=== PATIENT | female | born 1935 | race Caucasian/White ===

== ENCOUNTER 2017-09-05 09:58 | Outpatient (CLI) | payer MEDICARE, OTHER ==
--- NOTE | 2017-09-05 13:09 | MRI ---
LUMBAR SPINE MRI WITHOUT CONTRAST: 09/05/2017 HISTORY: Fall. Back pain. Prior back surgery. COMPARISON: 06/09/2009 TECHNIQUE: Multiplanar, multisequence MR imaging of the lumbar spine is provided without contrast. FINDINGS: The sagittal STIR imaging demonstrates no focal area of osseous marrow edema. Pedicle screws are pre sent at L4 and L5 with associated artifact limiting detailed assessment. Postoperative hardware is n ot well assessed on MRI. Assuming five lumbar type vertebral bodies, the conus medullaris terminates at the L1 level. T12-L1: There is mild disk space narrowing. There is disk desiccation and mild bilateral facet hype rtrophy. There is no significant central canal or neural foraminal stenosis. L1-L2: There is disk space narrowing and disk desiccation with mild disk bulge. There is bilateral facet hypertrophy and hypertrophy of the ligamentum flavum. There is mild central canal stenosis/lef t lateral recess stenosis. Mild bilateral neural foraminal stenosis. L2-L3: There is anterolisthesis, measuring 7-8 mm, worsened when compared to the prior study, at [facility] time anterolisthesis measured 4 mm. There is disk space narrowing and disk desiccation with promi nent bilateral facet hypertrophy and hypertrophy of the ligamentum flavum, worsened since the prior e xam. There is a vacuum disk present. There is mild bilateral neural foraminal stenosis, right greater than left, slightly worsened since t he prior exam. There is mild to moderate central canal stenosis, also worsened when compared to prio r imaging. L3-L4: There is anterolisthesis of L3 on L4, measuring approximately 7 mm, not significantly changed . There is bilateral facet hypertrophy. No significant central canal or left neural foraminal steno sis. There is mild stable right neural foraminal stenosis. L4-L5: No central canal stenosis. There is disk space narrowing, disk desiccation, and disk bulge. There is a small anterior epidural mass, of decreased T1 and T2 signal, which is posterior to the L4 vertebral body. This is less conspicuous than on the prior examination and likely represents a sequ estered disk fragment. This may emanate from the L3-L4 or L4-L5 intervertebral disk. An L4-L5 origi n is favored. This results in no significant central canal stenosis. There is bilateral facet hyper trophy, right greater than left, with at least mild bilateral neural foraminal stenosis, right greate r than left, somewhat limited in assessment secondary to artifact from the above described postoperat damian hardware. L5-S1: There is bilateral facet hypertrophy and hypertrophy of the ligamentum flavum, grossly unchan ged. There is disk space narrowing and disk desiccation with mild disk bulge. There is no significa nt central canal stenosis or right neural foraminal stenosis. There is a probable foraminal disk pro trusion on the left, which abuts the exiting L5 nerve root, with moderate left neural foraminal steno sis, new. The imaged retroperitoneal structures demonstrate marked atherosclerotic irregularity of the abdomina l aorta. There is aneurysmal dilatation of the abdominal aorta at the axial level of the T12-L1 disk interspace, measuring in the 3.6 x 3.7 cm range. There are numerous T2 hyperintense lesions seen th roughout both kidneys, suggesting numerous cysts. Partially imaged 2.7 cm, T2 hyperintense lesion no gris within the left hemipelvis, likely ovarian in nature. IMPRESSION: 1. Multilevel postoperative and degenerative changes noted within the lumbar spine, as detailed abov e. 2. No evidence for acute fracture. 3. Abdominal aortic aneurysm, incompletely assessed. Recommend CT examination. 4. Round T2 hyperintense lesion within the left hemipelvis, only visualized on sagittal imaging. Th is is likely ovarian in nature and requires further assessment via pelvic ultrasound, given the patie nt's age and the size of this lesion. CODE T POS: OFF
== END 2017-09-05 09:59 | disposition home or self-care (01) ==
LOC: SCSMRI 09:58
PROVIDERS: ATTEND Anesthesiology Pain Medicine
DX: M47.26 Other spondylosis with radiculopathy, lumbar region (principal); Z98.890 Other specified postprocedural states; I71.4 Abdominal aortic aneurysm, without rupture; M89.9 Disorder of bone, unspecified
CPT/HCPCS: 72148